=== PATIENT | female | born 1955 | race Caucasian/White ===

== ENCOUNTER → 2019-09-14 | Outpatient (CLI) | payer OTHER, SELFPAY ==
[2019-06-09 16:17] VITALS: BMI 31.1
[2019-09-14 18:45] LABS: Anion Gap 6 (5-15); BUN 9 mg/dL (7-18); BUN/Creat Ratio 13.2 RATIO (10-20); Calcium,Total 9.2 mg/dL (8.5-10.1); Chloride 105 mmol/L (98-107); Cholesterol 207 mg/dL (200); Creatinine, Serum 0.68 mg/dL (0.55-1.02); EST Glomerular Filtration Rate 92 mL/min (>60); Est Glom Filt Rate - Afr Amer 112 mL/min (>60); Glucose 76 mg/dL (74-106); High Density Lipoprotein 48 mg/dL; Potassium 3.8 mmol/L (3.5-5.1); Sodium Level 135 mmol/L (136-145); T4 Total, Thyroxin 8.2 ug/dL (4.8-13.9); Thyroid Stim Hormone (TSH) 4.43 uIU/mL (0.358-3.74); Triglycerides 112 mg/dL; Very Low Density Lipoprotein 22 mg/dL (5-40)
== END | disposition home or self-care (01) ==
LOC: MTLAB 16:51
PROVIDERS: PCP Family Medicine; Referring Provider Family Medicine; Visit Provider Family Medicine
DX: Z00.00 Encounter for general adult medical examination without abnormal findings (principal); E03.9 Hypothyroidism, unspecified
CPT/HCPCS: 36415; 80048; 80061; 84436; 84443

== ENCOUNTER → 2020-03-29 09:33 | Outpatient (CLI) | payer OTHER, SELFPAY ==
[2019-06-09 16:17] VITALS: BMI 31.1
[2020-03-29 12:55] LABS: Thyroid Stim Hormone (TSH) 3.36 uIU/mL (0.358-3.74)
== END ==
PROVIDERS: PCP Family Medicine; Referring Provider Family Medicine; Visit Provider Family Medicine
DX: E03.9 Hypothyroidism, unspecified (principal)
CPT/HCPCS: 36415; 84443

== ENCOUNTER 2021-06-29 15:30 | Outpatient (RCR) | payer OTHER, SELFPAY ==
--- NOTE | 2021-06-07 14:52 | HP.PTEVAL ---
Patient's Visit Information TANYA MENDEZ is a 66 year old F referred to Physical Therapy by KADEEM Watts with a diagnosis of . Date of Evaluation: 06/07/21 Physical Therapist: Deejay Vargas, PT, Cert MDT, OCS - Visit Plan Frequency: 2x /Week Duration: 4 Weeks Plan: PT INTERVETIONS DLS,POSTURAL EX'S,LE FLEXABLITY ,STRENGTHNEING QUADS/HAMS/HIP AND FUNCTIONAL STRENGTHENING ,MODALITIES NEEDED - Subjective This 66 y/o female presents physical therapy with back pain and knee pain. Patient has had knee and back pain for many years which has progressively worse. Patient noticed more pain during work demands. Seen DR recommended PT. Aggravating stairs ,pushing/pulling ,lifting some thing heavy, sitting and bending . Alleviating factors rest. Knees aggravating with squatting/kneeling. Denies paresthesia/tingling . Bowel/bladder-. Coughing/sneezing-. Pain affects sleeping ,but no abnormal night pain. Pain located global left knee and left side lumbar. Patient condition affects QOL and job demands. SOCIAL: . VOCATION: [employer] - Pain Left Back Pain Intensity (Out of 10): 5 Pain Intensity Range: 10 Left Knee Pain Intensity (Out of 10): 8 Pain Intensity Range: N/A - Objective POSTURE: mild forward posture. GAIT: reciprocal pattern. SYMMTRIES: align. NEURO: denies paresthesia/tingling, reflexes L3-L4,L4-L5,L5-S1 2/3. PALAPTION: tender LS. MMT: hip flexion /abduction 3+/5 ,quads/hamstrings 4-/5 left ,right 4/5,ankle 4/5. FLEXABLITY: hamstrings min tight. LUMBAR ROM: flexion WFL, extension mod loss pain, side glides min loss. AROM: supine knee flexion 0-130 degrees - Special Tests L/S Slump test left side: Negative L/S Slump test right side: Negative L/S Left Straight Leg Raise: Negative L/S Right Straight Leg Raise: Negative Lumbar Standing: Flexion - Mechanical Response: No effect Lumbar Standing: Flexion - Symptoms During Testing: No effect Lumbar Standing: Flexion - Symptoms After Testing: No effect Lumbar Standing: Extension - Mechanical Response: No effect Lumbar Standing: Extension - Symptoms During Testing: Increases Lumbar Standing: Extension - Symptoms After Testing: No worse Comments:: lumbar Lumbar Standing: Right Side Glides - Mechanical Response: No effect Lumbar Standing: Right Side [place] - Symptoms During Testing: No effect Lumbar Standing: Right Side [place] - Symptoms After Testing: No effect Lumbar Standing: Left Side [place] - Mechanical Response: No effect Lumbar Standing: Left Side [place] - Symptoms During Testing: No effect Lumbar Standing: Left Side [place] - Symptoms After Testing: No effect Lumbar Lying: Flexion - Mechanical Response: No effect Lumbar Lying: Flexion - Symptoms During Testing: No effect Lumbar Lying: Flexion - Symptoms After Testing: No effect Lumbar Lying: Extension - Mechanical Response: No effect Lumbar Lying: Extension - Symptoms During Testing: Increases Lumbar Lying: Extension - Symptoms After Testing: No worse L Knee [place] - Meniscus: Negative L Knee Deloris - ACL: Negative L Knee Anterior Drawer - ACL: Negative L Knee Valgus - MCL: Negative L Knee Varus - LCL: Negative L Knee Patellar Apprehension - PFS: Negative L Knee Patellar Grind - PFS: Negative - Balance/Special Test Scores Oswestry Low Back Score: 20 - Goals Goal 1:: I with HEP for lumbar and knee. Goal Time Frame: 4-6 Weeks Goal 2:: Patient to improve posture for ADLS Goal Time Frame: 4-6 Weeks Goal 3:: Patient to improve lumbar ROM to improve job demands and putting on shoes. Goal Time Frame: 4-6 Weeks Goal 4:: Patient to increase strength hip 4/5 ,quads/hams 4/5 to improve gait and function. Goal Time Frame: 4-6 Weeks Goal 5:: Patient to demonstrate 50% improvement with decrease back and knee pain to improve function. Goal Time Frame: 4-6 Weeks - Rehabilitation Potential Rehabilitation Potential: Good - Anticipated Interventions Patient/Client Instruction: Educate patient on: Condition, Plan of Care For the Purpose of:: To decrease pain, To increase ROM, To improve muscle performance and motor function, To improve ability to perform ADL's, To increase tolerance to activity/condition/position, To improve ability of physical actions for home/community/work/leisure, To improve health of tissue, To decrease soft tissue restriction, To increase flexibility/ROM, To reduce risk of recurrence, To prevent re-injury Therapeutic Exercise to Include: Strength training, Body mechanics, Postural training, Flexibilty training, Active ROM Comment: QUADS/HAMS/HIP For the Purpose of:: To decrease pain, To increase ROM, To improve muscle performance and motor function, To improve ability to perform ADL's, To increase tolerance to activity/condition/position, To decrease level of supervision to perform tasks, To improve health of tissue, To decrease soft tissue restriction, To increase flexibility/ROM For the Purpose of:: To decrease pain, To increase oxygenation perfusion, To increase tolerance to activity/condition/position, To improve ability of physical actions for home/community/work/leisure, To improve health of tissue, To decrease soft tissue restriction, To increase flexibility/ROM, To prevent re-injury TENS: Yes IF ES: Yes Cryotherapy (ice pack, ice massage): Yes Thermo therapy (hot pack): Yes Ultrasound (thermal/non thermal): Yes For the Purpose of:: To decrease pain, To increase ROM, To improve nutrient delivery to tissue, To increase oxygenation perfusion, To improve health of tissue, To decrease soft tissue restriction Thank you for the opportunity to evaluate your patient. For Medicare and Medicare HMO plans, please review the plan of care and approve it. It will need to be FAXED BACK to us at [phone] for Medicare purposes. For Medicare only, by signing this I certify the plan of care. Please let me know if there are questions or concerns regarding this plan of care. Physician Signature: Date:
--- NOTE | 2021-06-07 15:24 | HP.PTEVAL_ITS ---
Patient's Visit Information TANYA MENDEZ is a 66 year old F referred to Physical Therapy by KADEEM Watts with a diagnosis of MUSC LE SPASMS OF BACK ,STRAIN OF UNSPECIFIED MUSCLE/TENDON AT LOWER LEG -L. Date of Evaluation: 06/07/21 Physical Therapist: Deejay Vargas, PT, Cert MDT, OCS - Visit Plan Frequency: 2x /Week Duration: 4 Weeks Plan: PT INTERVETIONS DLS,POSTURAL EX'S,LE FLEXABLITY ,STRENGTHNEING QUADS/HAMS/HIP AND FUNCTIONAL STRENGTHENING ,MODALITIES NEEDED - Subjective This 66 y/o female presents physical therapy with back pain and knee pain. Patient has had knee and back pain for many years which has progressively worse. Patient noticed more pain during work demands. Seen DR recommended PT. Aggravating stairs ,pushing/pulling ,lifting some thing heavy, sitting and bending . Alleviating factors rest. Knees aggravating with squatting/kneeling. Denies paresthesia/tingling . Bowel/bladder-. Coughing/sneezing-. Pain affects sleeping ,but no abnormal night pain. Pain located global left knee and left side lumbar. Patient condition affects QOL and job demands. SOCIAL: . VOCATION: [employer] - Pain Left Back Pain Intensity (Out of 10): 5 Pain Intensity Range: 10 Left Knee Pain Intensity (Out of 10): 8 Pain Intensity Range: N/A - Objective POSTURE: mild forward posture. GAIT: reciprocal pattern. SYMMTRIES: align. NEURO: denies paresthesia/tingling, reflexes L3-L4,L4-L5,L5-S1 2/3. PALAPTION: tender LS. MMT: hip flexion /abduction 3+/5 ,quads/hamstrings 4-/5 left ,right 4/5,ankle 4/5. FLEXABLITY: hamstrings min tight. LUMBAR ROM: flexion WFL, extension mod loss pain, side glides min loss. AROM: supine knee flexion 0-130 degrees - Special Tests L/S Slump test left side: Negative L/S Slump test right side: Negative L/S Left Straight Leg Raise: Negative L/S Right Straight Leg Raise: Negative Lumbar Standing: Flexion - Mechanical Response: No effect Lumbar Standing: Flexion - Symptoms During Testing: No effect Lumbar Standing: Flexion - Symptoms After Testing: No effect Lumbar Standing: Extension - Mechanical Response: No effect Lumbar Standing: Extension - Symptoms During Testing: Increases Lumbar Standing: Extension - Symptoms After Testing: No worse Comments:: lumbar Lumbar Standing: Right Side Glides - Mechanical Response: No effect Lumbar Standing: Right Side [place] - Symptoms During Testing: No effect Lumbar Standing: Right Side [place] - Symptoms After Testing: No effect Lumbar Standing: Left Side [place] - Mechanical Response: No effect Lumbar Standing: Left Side [place] - Symptoms During Testing: No effect Lumbar Standing: Left Side [place] - Symptoms After Testing: No effect Lumbar Lying: Flexion - Mechanical Response: No effect Lumbar Lying: Flexion - Symptoms During Testing: No effect Lumbar Lying: Flexion - Symptoms After Testing: No effect Lumbar Lying: Extension - Mechanical Response: No effect Lumbar Lying: Extension - Symptoms During Testing: Increases Lumbar Lying: Extension - Symptoms After Testing: No worse L Knee [place] - Meniscus: Negative L Knee Deloris - ACL: Negative L Knee Anterior Drawer - ACL: Negative L Knee Valgus - MCL: Negative L Knee Varus - LCL: Negative L Knee Patellar Apprehension - PFS: Negative L Knee Patellar Grind - PFS: Negative - Balance/Special Test Scores Oswestry Low Back Score: 20 - Goals Goal 1:: I with HEP for lumbar and knee. Goal Time Frame: 4-6 Weeks Goal 2:: Patient to improve posture for ADLS Goal Time Frame: 4-6 Weeks Goal 3:: Patient to improve lumbar ROM to improve job demands and putting on shoes. Goal Time Frame: 4-6 Weeks Goal 4:: Patient to increase strength hip 4/5 ,quads/hams 4/5 to improve gait and function. Goal Time Frame: 4-6 Weeks Goal 5:: Patient to demonstrate 50% improvement with decrease back and knee pain to improve function. Goal Time Frame: 4-6 Weeks - Rehabilitation Potential Physical Therapy Diagnosis: This patient has left lumbar pain and knee pain with repetitive activity bending/lifting ,squatting/kneeling weakness left quad and hip,. affecting job demands thus benefit from skilled PT . Rehabilitation Potential: Good - Anticipated Interventions Patient/Client Instruction: Educate patient on: Condition, Plan of Care For the Purpose of:: To decrease pain, To increase ROM, To improve muscle performance and motor function, To improve ability to perform ADL's, To increase tolerance to activity/condition/position, To improve ability of physical actions for home/community/work/leisure, To improve health of tissue, To decrease soft tissue restriction, To increase flexibility/ROM, To reduce risk of recurrence, To prevent re-injury Therapeutic Exercise to Include: Strength training, Body mechanics, Postural training, Flexibilty training, Active ROM Comment: QUADS/HAMS/HIP For the Purpose of:: To decrease pain, To increase ROM, To improve muscle performance and motor function, To improve ability to perform ADL's, To increase tolerance to activity/condition/position, To decrease level of supervision to perform tasks, To improve health of tissue, To decrease soft tissue restriction, To increase flexibility/ROM For the Purpose of:: To decrease pain, To increase oxygenation perfusion, To increase tolerance to activity/condition/position, To improve ability of physical actions for home/community/work/leisure, To improve health of tissue, To decrease soft tissue restriction, To increase flexibility/ROM, To prevent re- injury TENS: Yes IF ES: Yes Cryotherapy (ice pack, ice massage): Yes Thermo therapy (hot pack): Yes Ultrasound (thermal/non thermal): Yes For the Purpose of:: To decrease pain, To increase ROM, To improve nutrient delivery to tissue, To increase oxygenation perfusion, To improve health of tissue, To decrease soft tissue restriction Thank you for the opportunity to evaluate your patient. For Medicare and Medicare HMO plans, please review the plan of care and approve it. It will need to be FAXED BACK to us at [phone] for Medicare purposes. For Medicare only, by signing this I certify the plan of care. Please let me know if there are questions or concerns regarding this plan of care. Physician Signature: Date:
--- NOTE | 2021-11-15 13:52 | HP.PTDCNRP_ITS ---
TANYA MENDEZ was seen in my office for initial evaluation on 06/07/21. The following Plan of Care was established for this patient: Initial Frequency: 2x /Week Initial Duration: 4 Weeks Patient/Client Instruction: Educate patient on: Condition, Plan of Care For the Purpose of:: To decrease pain, To increase ROM, To improve muscle performance and motor function, To improve ability to perform ADL's, To increase tolerance to activity/condition/position, To improve ability of physical actions for home/community/work/leisure, To improve health of tissue, To decrease soft tissue restriction, To increase flexibility/ROM, To reduce risk of recurrence, To prevent re-injury Therapeutic Exercise to Include: Strength training, Body mechanics, Postural training, Flexibilty training, Active ROM For the Purpose of:: To decrease pain, To increase ROM, To improve muscle performance and motor function, To improve ability to perform ADL's, To increase tolerance to activity/condition/position, To decrease level of supervision to perform tasks, To improve health of tissue, To decrease soft tissue restriction, To increase flexibility/ROM For the Purpose of:: To decrease pain, To increase oxygenation perfusion, To increase tolerance to activity/condition/position, To improve ability of physical actions for home/community/work/leisure, To improve health of tissue, To decrease soft tissue restriction, To increase flexibility/ROM, To prevent re- injury TENS: Yes IF ES: Yes Cryotherapy (ice pack, ice massage): Yes Thermo therapy (hot pack): Yes Ultrasound (thermal/non thermal): Yes For the Purpose of:: To decrease pain, To increase ROM, To improve nutrient delivery to tissue, To increase oxygenation perfusion, To improve health of tissue, To decrease soft tissue restriction This patient was last seen in our office . Pertinent comments regarding their Physical therapy will appear below: Patient was seem for muscle spasms for HEP last visit doing good thus d/c At this point I will be discontinuing this patient from physical therapy. I would be happy to see this patient again in the future if found appropriate by the physician. Thank you! Deejay Vargas, PT, Cert MDT, OCS Balance/Gait/Functional tests - Balance/Special Test Scores Oswestry Low Back Score: 1
== END 2021-06-29 19:00 | disposition home or self-care (01) ==
LOC: PT 15:30
PROVIDERS: PCP Family Medicine; Referring Provider Physician Assistant Surgical; Visit Provider Physician Assistant Surgical
DX: S86.912D Strain of unspecified muscle(s) and tendon(s) at lower leg level, left leg, subsequent encounter (principal); M62.830 Muscle spasm of back; X58.XXXD Exposure to other specified factors, subsequent encounter
CPT/HCPCS: 97110; 97162